=== PATIENT | female | born 1955 | race Two or more races ===

== ENCOUNTER → 2022-02-19 | Outpatient (CLI) | payer MEDICARE ==
[~2022-02-19] MED LIST: CRUTCH USE; HYDACE5 PO; NAPR550 PO; RXHYDACE PO; RXNAPNA550 PO
[2022-02-19 17:14] LABS: Campylobacter Sp Not Detected (NOT DETECT)
[2022-02-19 17:15] LABS: Adenovirus F 40/41 Not Detected (NOT DETECT); Astrovirus Not Detected (NOT DETECT); Cryptosporidium Not Detected (NOT DETECT); Cyclospora Cayetanensis Not Detected (NOT DETECT); E. Coli O157 Not Detected (NOT DETECT); Entamoeba Histolytica Not Detected (NOT DETECT); Enteroaggregative E. coli-EAEC Not Detected (NOT DETECT); Enteropathogenic E. coli-EPEC Not Detected (NOT DETECT); Enterotoxigenic E. coli-ETEC Not Detected (NOT DETECT); Giardia Lamblia Not Detected (NOT DETECT); Norovirus GI/GII Not Detected (NOT DETECT); Plesiomonas Shigelloides Not Detected (NOT DETECT); Rotavirus A Not Detected (NOT DETECT); Salmonella Sp Not Detected (NOT DETECT); Sapovirus Not Detected (NOT DETECT); Shiga Toxin-prod E. coli-STEC Not Detected (NOT DETECT); Shigella/Enteroin E. coli-EIEC Not Detected (NOT DETECT); Vibrio Cholerae Not Detected (NOT DETECT); Vibrio Sp Not Detected (NOT DETECT); Yersinia Enterocolitica Not Detected (NOT DETECT)
== END ==
LOC: LAB 09:30 → LAB SHORT 09:30
PROVIDERS: Physician Assistant Surgical
DX: R19.7 Diarrhea, unspecified (principal)
CPT/HCPCS: 87324; 87507

== ENCOUNTER 2022-09-12 10:44 | Day surgery (SDC) | payer MEDICARE ==
[~2022-09-12] VITALS: Ht 152.4 cm; Wt 54.0 kg
[2022-09-12] MEDS ORDERED: PROG100 (11:20)
[2022-09-12] MEDS ORDERED: CLIMARA1 EACH (11:21)
[2022-09-12] MEDS ORDERED: DHEA (11:21)
[2022-09-12] MEDS ORDERED: UBID10 (11:21)
[2022-09-12] MEDS ORDERED: TOCO1000 (11:21)
[2022-09-12] MEDS ORDERED: [UNRECOGNIZED DRUG - OTHER] (11:21)
[2022-09-12] MEDS ORDERED: VITAMIN D310 MC4 (11:21)
[2022-09-12] MEDS ORDERED: Vitamin B Comple1 EA (11:22)
[2022-09-12] MEDS ORDERED: MULTI-VITAMIN1 EAC2 (11:22)
[2022-09-12 14:12] VITALS: BP 105/79
== END 2022-09-12 14:11 | disposition home or self-care (01) ==
LOC: ORSCSDS 10:44
PROVIDERS: Internal Medicine Gastroenterology
PROC: 0DB78ZX Excision of Stomach, Pylorus, Via Natural or Artificial Opening Endoscopic, Diagnostic (ICD-10-PCS; principal; 2022-09-12 12:00)
PROC: 0DB58ZX Excision of Esophagus, Via Natural or Artificial Opening Endoscopic, Diagnostic (ICD-10-PCS; principal; 2022-09-12 12:00)
PROC: 0DBE8ZX Excision of Large Intestine, Via Natural or Artificial Opening Endoscopic, Diagnostic (ICD-10-PCS; principal; 2022-09-12 12:00)
DX: R19.4 Change in bowel habit (principal); R13.10 Dysphagia, unspecified; K29.70 Gastritis, unspecified, without bleeding; K31.7 Polyp of stomach and duodenum; K64.8 Other hemorrhoids; E03.9 Hypothyroidism, unspecified; Z79.899 Other long term (current) drug therapy
CPT/HCPCS: 88305; 88342; J2405; J2704; J7120